=== PATIENT | male | born 2005 | race Caucasian/White ===

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

== ENCOUNTER 2024-02-03 09:37 | Emergency (ER) | payer SELFPAY ==
[2024-02-03 09:37] VITALS: BP 121/47; PULSE 76; RESP 19; TEMP 36.6; O2SAT 97; BMI 24.3
--- NOTE | 2024-02-03 09:55 | XR_ITS ---
FINAL REPORT CLINICAL HISTORY: left pointer crush injury FINDINGS: LEFT SECOND DIGIT 2 views were obtained. There is no acute fracture or dislocation. Visualized joint spaces are normally aligned. Soft tissues are unremarkable. IMPRESSION: No acute bony abnormality. Reviewed, Interpreted and Dictated by Geovanna Iglesias MD Transcribed by Milli La Authenticated and [facility]
[2024-02-03 10:00] VITALS: BP 94/56; PULSE 90; O2SAT 98
[2024-02-03] MEDS: TET/DIPHTH/PERT-ADULT 0.5ML SYRINGE 0.5 ML IM (10:03)
--- NOTE | 2024-02-03 10:17 | ED_ITS ---
Discharge Plan Disposition Patient Disposition: Home, Self-Care Prescriptions Prescriptions: New cephalexin 500 mg capsule 1,000 mg PO BID 5 Days Qty: 20 0RF Referrals Follow up/Referrals: Camryn Cotter PA [Primary Care Provider] - See instructions Activity Restrictions/Add. Instructions Additional Instructions/Restrictions: Call your family doctor to establish care for this visit to the emergency department and schedule follow-up within 48 hours to ensure improvement. If you have any worsening of your condition or any other concerning signs or symptoms, return to the emergency department or your primary care doctor for further evaluation. Clinical Impressions Clinical Impression: Avulsion of nail of left index finger Print Language Print Language: Angolan Discharge ED Provider: Jamie Perez General Adult HPI General Chief complaint: Extremity Injury, Upper Stated complaint: AO- laceration to L index finger Time Seen by Provider: 02/03/24 09:53 Mode of Arrival: Ambulatory Source of Information: Patient Limitations: No Limitations Description of Symptoms (Recalled from ER Triage Doc. by RN): Patient ambulatory to ED with complaints of left index finger injury. Pt reports that he was working on a car yesterday when he cut his left index finer on a radiator. Denies loss of sensation, and no swelling noted to area. Bleeding is controlled at this time. History of Present Illness HPI narrative: Please note that above description of symptoms, in this electronic medical record under categorization of recalled from ER triage doctor by RN are reflective of an initial nursing assessment, however, is not reflective of my full history and physical exam that was personally taken and clarified. Consequentially, this preceding description of symptoms, which may include the patient's categorized chief complaint in the EMR, do not reflect my personal clinical impression, and the ultimate description of history of present illness and patient stated complaints should be deferred to this section of the note. Unless stated otherwise or congruent with this section of the note, additional signs, symptoms, or incongruence should be interpreted as inaccurate with my clinical impression. Related Data Previous Rx's ?Medication ?Instructions ?Recorded cephalexin 500 mg capsule 1,000 mg (2 x 500 mg) PO BID 5 02/03/24 days #20 caps Allergies Allergy/AdvReac Type Severity Reaction Status Date / Time No Known Allergies Allergy Verified 03/28/21 10:53 [facility] Disclaimer: The information contained in this section may have been updated after the patient was seen, as this information can be updated by other users. Medical History (Updated 02/03/24 @ 11:04 by Jamie Perez MD) Allergic rhinitis ADHD (attention deficit hyperactivity disorder) Social History Smoking Status: Current every day smoker alcohol intake: never substance use type: denies use current occupational status: other Travel in the last 8 weeks: None household members: family housing: house ROS Obtained: Yes All systems reviewed & no additional complaints except as documented Physical Exam General General appearance: alert Head Head exam: atraumatic and normocephalic Eye Eye exam: Present normal appearance, PERRL and EOMI Neck Neck exam: Present normal inspection, full ROM and trachea midline Respiratory Respiratory exam: Absent respiratory distress, wheezes, stridor, accessory muscle use or prolonged expiratory phase Cardiovascular Cardiovascular exam: Present other (Pulses equal symmetric in upper and lower extremities) Abdominal Exam Abdominal exam: Present soft; Absent distention, tenderness or pulsatile mass Extremities Exam Extremities exam: Present other (Per MDM); Absent edema Neurological Exam Neurological exam: Present alert, oriented X3 and CN II-XII intact; Absent motor sensory deficit Skin Skin exam: Present warm and dry; Absent diaphoresis or erythema Medical Decision Making Medical Records Medical records reviewed: Yes I reviewed the patient's medical records. Screening: Per USPSTF and CDC recommendations, given the prevalence of disease in our reg ion, it is our hospital?s policy to screen for HIV and viral Hepatitis for all patients aged 18 and over and those with ongoing risk factors. Mars Inquiry Pt receiving controlled substance: No Mars was queried for this patient: No Vital Signs: 02/03/24 09:37 02/03/24 10:00 Temperature 97.8 F Temperature Source Oral Pulse Rate 90 Pulse Rate [Right] 76 Respiratory Rate 19 Blood Pressure 94/56 L Blood Pressure [Right Arm] 121/47 L Blood Pressure Mean [Right Arm] 71 Blood Pressure Source [Right Arm] Arterial Line Blood Pressure Position [Right Arm] Sitting 02 Sat by Pulse Oximetry 97 98 Oxygen Delivery Method Room Air Room Air Orders (Tests/Meds): ED MEDICATIONS Discontinued Medications Generic Name Dose Route Start Last Admin Trade Name Freq PRN Reason Stop Dose Admin Tetanus/Reduced Diphtheria/Acell Pertussis 0.5 ml 02/03/24 09:55 02/03/24 10:03 Tet/Diphth/Pert-Adult 0.5ml Syringe IM 02/03/24 09:56 0.5 ml .ONCE ONE Administration ORDERS Category Date Time Status XR finger LT min 2V Stat Exams 02/03/24 09:55 Completed Medical Decision Narrative: 18-year-old male no relevant medical history presenting with injury to his left pointer finger. Patient states that he was working on his car yesterday, 02/01 in the afternoon when he had small crush injury to the distal aspect of his left pointer finger. Minimally painful at this point, just hurts when he uses it. No numbness, weakness, tingling. Patient does not remember last tetanus shot. Has not taken anything for the pain. No other relevant history. History was obtained via conversation with patient. On arrival, patient hemodynamically stable, alert, oriented x4, appropriate, GCS 15, moving all extremities spontaneously, pupils equal and reactive to light. Full physical exam performed and significant for very well-appearing male who is in no acute distress. Left pointer finger with partial nail avulsion involving distal aspect of left pointer finger nail that does not extend proximally into either paronychia fold or eponychial fold. Neurovascularly intact, hemostatic. Patient does have significant amount of dirt under his fingernails. Differential includes distal tuft injury, skin and soft tissue injury, among others. Patient placed on continuous cardiac monitoring and continuous pulse ox with initial blood pressure 121/47, heart rate 76, saturation 97% on room air. Because patient without any pain at this time, no pain medicines were deemed necessary, but patient was given Tdap. Workup independently interpreted and significant for no acute bony abnormality of the finger. See radiology read for full review of final results. Nail plate was glued on. On reevaluation, patient resting comfortably. Given patient presentation, workup, history, this most likely represents minor nail avulsion. Because patient nearly 24 hours out, significant dirt underneath fingernails with nail avulsion, Keflex sent out of abundance of caution to pharmacy. Because patient at baseline without signs or symptoms of clinical decompensation, deemed appropriate for discharge. Results were relayed to patient who voiced understanding and were agreeable to outpatient management and follow up. I discussed my clinical impression with patient and answered all questions. At this time, the evidence for any other entities in the differential is insufficient to warrant any further testing or ED observation. This was explained as well. Advisory was given that persistent or worsening symptoms require further evaluation. I confirmed the understanding of this discussion. Fabric Stretcher disclaimer Much of this encounter note is an electronic metal pickling equipment operator spoken language to printed text. Electronic metal pickling equipment operator of the spoken language may permit errors. Although I have reviewed the note, some errors may still exist. Critical Care Critical Care Time Critical Care Time: No
[2024-02-03 11:01] VITALS: BP 110/60; PULSE 80; RESP 16; TEMP 36.6; O2SAT 98
--- NOTE | 2024-02-03 11:01 | PC.NURSE ---
Dr. Perez at bedside
== END 2024-02-03 11:08 | disposition home or self-care (01) ==
PROVIDERS: Emergency Provider Emergency Medicine; PCP Physician Assistant
DX: S61.301A Unspecified open wound of left index finger with damage to nail, initial encounter (principal); W26.8XXA Contact with other sharp object(s), not elsewhere classified, initial encounter; Z23 Encounter for immunization
CPT/HCPCS: 73140; 90471; 90715; 99283